=== PATIENT | female | born 1955 | race African-American/Black ===

== ENCOUNTER 2020-09-19 22:05 | Inpatient (IN) | payer MEDICARE, MEDICAID ==
[~2020-09-19] VITALS: Ht 170.2 cm; Wt 101.2 kg
[~2020-09-19 22:05] MED LIST: AMLO10TA80 PO; CARV25TA47 PO; CLON0.2T PO; CYAN250010 PO; IRON1CAP21 PO; LEVO50TA8 PO; LOSA50TA41 PO; OMEP20TA2 PO; PROT40 MT; TIZA4CAP PO; TRAM50TA94 MT
[2020-09-19] MEDS ORDERED: CLONIDINE 0.2MG TABLET PO ONE (22:30)
[2020-09-19 23:09] LABS: BASOPHILS % 0.6 % (0.0-2.0); EOSINOPHILS % 0.2 % (0.0-5.0); HEMOGLOBIN. 9.3 g/dL (12.0-16.0); MEAN CORPUSCULAR HEMOGLOBIN 21.6 pg (28.0-32.0); MEAN CORPUSCULAR VOLUME 67.4 fL (81.0-99.0); MEAN PLATELET VOLUME 8.7 fl (7.4-10.4); MONOCYTES % 5.5 % (2.0-8.0); NEUTROPHILS % 80.7 % (40.0-76.0); PLATELET 214 x1000/uL (130-400); RED CELL DISTRIBUTION WIDTH 22.3 % (11.6-14.6)
[2020-09-19 23:14] LABS: CHLORIDE 107 mEq/L (98-107)
[2020-09-19 23:19] LABS: ETHANOL BLOOD < 10 mg/dL; INR 1.1; PARTIAL THROMBOPLASTIN TIME 29.4 sec (23.4-31.0); PROTHROMBIN TIME 11.4 sec (9.6-11.0)
[2020-09-19 23:25] LABS: PLATELET ESTIMATE NORMAL
[2020-09-20 00:20] LABS: CLARITY URINE CLEAR (CLEAR); COLOR URINE YELLOW (YELLOW); KETONES URINE NEGATIVE (NEGATIVE); LEUKOCYTE ESTERASE URINE NEGATIVE (NEGATIVE); NITRITE URINE NEGATIVE (NEGATIVE); OCCULT BLOOD URINE TRACE (NEGATIVE); PH URINE 7.5 (4.5-8.0); PROTEIN URINE 1+ (NEGATIVE); SPECIFIC GRAVITY URINE 1.009 (1.005-1.030); UROBILINOGEN URINE 0.2 E.U./dL (0.2-1.0)
[2020-09-20] MEDS ORDERED: AZITHROMYCIN 500 MG in DEXT 5% WATER 250 ML IV ONE (00:30)
[2020-09-20] MEDS ORDERED: CEFTRIAXONE 1 G PREMIX 50 ML IV ONE (00:30)
[2020-09-20] MEDS ORDERED: ACETAMINOPHEN 650MG SUPP PR ONE (00:30)
[2020-09-20 00:35] LABS: *AMPHETAMINES SCREEN URINE NEGATIVE (NEGATIVE)
[2020-09-20 00:37] LABS: *BARBITURATES SCREEN URINE NEGATIVE (NEGATIVE); *BENZODIAZEPINES SCREEN URINE NEGATIVE (NEGATIVE); *COCAINE SCREEN URINE NEGATIVE (NEGATIVE); CANNABINOID URINE SCREEN NEGATIVE (NEGATIVE); METHADONE URINE SCREEN NEGATIVE (NEGATIVE); OPIATES URINE SCREEN NEGATIVE (NEGATIVE); PHENCYCLIDINE URINE SCREEN NEGATIVE (NEGATIVE)
[2020-09-20] MEDS ORDERED: ASPIRIN 300MG SUPP PR ONE (00:45)
[2020-09-20] MEDS ORDERED: ACETAMINOPHEN 325MG TABLET PO ONE (01:15)
[2020-09-20] MEDS ORDERED: ASPIRIN 325MG EC TABLET PO ONE (01:15)
[2020-09-20 09:15] VITALS: BP 160/94
[2020-09-20] MEDS ORDERED: ACETAMINOPHEN 325MG TABLET PO PRN (11:45)
[2020-09-20] MEDS ORDERED: DOCUSATE SODIUM 100MG CAPSULE PO PRN (11:45)
[2020-09-20] MEDS ORDERED: MAGNESIUM/ALUMINUM HYDROXIDE/SIMETHICONE 30ML UDC PO PRN (11:45)
[2020-09-20] MEDS ORDERED: IPRATROPIUM/ALBUTEROL 0.5-3(2.5)MG/3ML NEB HHN PRN (11:45)
[2020-09-20 12:00] VITALS: BP 145/86
[2020-09-20] MEDS ORDERED: SUMATRIPTAN SUCCINATE 25MG TABLET PO PRN (15:45)
[2020-09-20 16:00] VITALS: BP 150/90
[2020-09-20] MEDS: ONDANSETRON HCL 4MG/2ML INJ IV PRN (18:29)
[2020-09-20 20:00] VITALS: BP 170/111
[2020-09-20] MEDS: VANCOMYCIN 1500MG in DEXTROSE 5% WATER 250ML IV NR ×2 (20:00→20:06)
[2020-09-20] MEDS ORDERED: POTASSIUM CHLORIDE 20MEQ TABLET SR PO NR (20:00)
[2020-09-20] MEDS: LEVOTHYROXINE SODIUM 50MCG TABLET PO SCH (20:06)
[2020-09-20] MEDS: PANTOPRAZOLE 40MG DR TABLET PO SCH (20:06)
[2020-09-20] MEDS: CEFTRIAXONE 2 G in DEXTROSE 5% WATER 50 ML IV SCH (20:06)
[2020-09-20] MEDS: HYDROCODONE/ACETAMINOPHEN 5/325MG TABLET PO PRN (20:10)
[2020-09-20] MEDS: AMPICILLIN SOD/SULBACTAM NA 3 G in SODIUM CHLORIDE 0.9% 100 ML IV SCH (21:00)
[2020-09-20] MEDS: ACYCLOVIR INJ 750 MG in DEXT 5% WATER 125 ML IV SCH (21:00)
[2020-09-20] MEDS: CLONIDINE 0.1MG TABLET PO PRN (21:16)
[2020-09-20 22:22] VITALS: BP 146/93
[2020-09-20] MEDS: ACETAMINOPHEN 325MG TABLET PO PRN (23:08)
[2020-09-21] VITALS (7 sets, daily range): BP systolic 128–159; BP diastolic 70–109
[2020-09-21] MEDS: AMPICILLIN SOD/SULBACTAM NA 3 G in SODIUM CHLORIDE 0.9% 100 ML IV SCH ×4 (03:00→21:16)
[2020-09-21] MEDS: HYDROCODONE/ACETAMINOPHEN 5/325MG TABLET PO PRN ×2 (04:04→10:17)
[2020-09-21] MEDS: ACYCLOVIR INJ 750 MG in DEXT 5% WATER 125 ML IV SCH (05:00)
[2020-09-21] MEDS: LEVOTHYROXINE SODIUM 50MCG TABLET PO SCH (06:42)
[2020-09-21 07:41] LABS: HEMATOCRIT. 27.7 % (36.0-48.0); HEMOGLOBIN. 8.8 g/dL (12.0-16.0); MEAN CORPUSCULAR HEMOGLOBIN 21.7 pg (28.0-32.0); MEAN CORPUSCULAR VOLUME 68.5 fL (81.0-99.0); MEAN PLATELET VOLUME 9.5 fl (7.4-10.4); PLATELET 221 x1000/uL (130-400); RED BLOOD CELL COUNT 4.04 mill/uL (4.2-5.4); RED CELL DISTRIBUTION WIDTH 23.1 % (11.6-14.6)
[2020-09-21] MEDS: CEFTRIAXONE 2 G in DEXTROSE 5% WATER 50 ML IV SCH ×2 (08:00→19:48)
[2020-09-21] MEDS ORDERED: VANCOMYCIN 500 MG PREMIX 100 ML IV SCH (08:00)
[2020-09-21 08:19] LABS: CHLORIDE 107 mEq/L (98-107)
[2020-09-21 08:29] LABS: TOTAL IRON BINDING CAPACITY 305 ug/dL (250-450)
[2020-09-21 08:34] LABS: FOLIC ACID (FOLATE) SERUM >20 ng/mL ng/mL (>5.38)
[2020-09-21 08:40] LABS: FERRITIN 34 ng/mL (10-291)
[2020-09-21 08:46] LABS: VITAMIN B12 SERUM 254 pg/mL (211-911)
[2020-09-21] MEDS: PANTOPRAZOLE 40MG DR TABLET PO SCH (10:16)
[2020-09-21] MEDS ORDERED: IRON SUCROSE COMPLEX 100 MG/5 ML ML IV SCH (11:30)
[2020-09-21] MEDS: VANCOMYCIN 750 MG PREMIX 150 ML IV SCH ×2 (11:36→22:01)
[2020-09-21] MEDS ORDERED: NALOXONE HCL 0.4 MG/ML 1ML VIAL IV PRN (12:30)
[2020-09-21 12:53] LABS: PLATELET ESTIMATE NORMAL
[2020-09-21] MEDS: CYANOCOBALAMIN 1000MCG/ML VIAL IM SCH (14:07)
[2020-09-21] MEDS: AMLODIPINE 5MG TABLET PO SCH (14:08)
[2020-09-21] MEDS: OXYCODONE HCL/ACETAMINOPHEN 5/325MG TABLET PO PRN ×2 (14:09→21:39)
[2020-09-21] MEDS: ONDANSETRON HCL 4MG/2ML INJ IV PRN (16:20)
[2020-09-21] MEDS: BACLOFEN 10MG TABLET PO SCH ×2 (16:21→22:06)
[2020-09-22] VITALS: BP 128/70
[2020-09-22] MEDS: ACETAMINOPHEN 325MG TABLET PO PRN ×2 (00:27→23:45)
[2020-09-22] MEDS: AMPICILLIN SOD/SULBACTAM NA 3 G in SODIUM CHLORIDE 0.9% 100 ML IV SCH ×4 (02:47→20:13)
[2020-09-22] MEDS: CLONIDINE 0.1MG TABLET PO PRN (02:57)
[2020-09-22 04:00] VITALS: BP 147/96
[2020-09-22] MEDS: LEVOTHYROXINE SODIUM 50MCG TABLET PO SCH (06:09)
[2020-09-22] MEDS: BACLOFEN 10MG TABLET PO SCH ×3 (06:09→20:13)
[2020-09-22] MEDS: OXYCODONE HCL/ACETAMINOPHEN 5/325MG TABLET PO PRN ×3 (06:14→20:12)
[2020-09-22 07:02] LABS: BASOPHILS % 0.9 % (0.0-2.0); EOSINOPHILS % 7.1 % (0.0-5.0); HEMATOCRIT. 28.4 % (36.0-48.0); HEMOGLOBIN. 9.1 g/dL (12.0-16.0); LYMPHOCYTES % 39.3 % (20.0-50.0); MEAN PLATELET VOLUME 8.9 fl (7.4-10.4); MONOCYTES % 10.4 % (2.0-8.0); NEUTROPHILS % 42.3 % (40.0-76.0); PLATELET 215 x1000/uL (130-400); RED BLOOD CELL COUNT 4.11 mill/uL (4.2-5.4); RED CELL DISTRIBUTION WIDTH 22.5 % (11.6-14.6)
[2020-09-22 07:35] LABS: CHLORIDE 106 mEq/L (98-107)
[2020-09-22 08:00] VITALS: BP 150/100
[2020-09-22] MEDS: CEFTRIAXONE 2 G in DEXTROSE 5% WATER 50 ML IV SCH ×2 (08:52→20:13)
[2020-09-22] MEDS: PANTOPRAZOLE 40MG DR TABLET PO SCH (09:40)
[2020-09-22] MEDS: AMLODIPINE 5MG TABLET PO SCH (09:40)
[2020-09-22] MEDS ORDERED: IRON SUCROSE COMPLEX 100 MG/5 ML ML IV SCH (12:00)
[2020-09-22] MEDS: VANCOMYCIN 1 G PREMIX 200 ML IV SCH ×2 (12:46→23:10)
[2020-09-22] MEDS ORDERED: AMLODIPINE 5MG TABLET PO NR (13:30)
[2020-09-22] MEDS ORDERED: POTASSIUM CHLORIDE 20MEQ TABLET SR PO NR ×2 (13:30→15:00)
[2020-09-22] MEDS: CYANOCOBALAMIN 1000MCG/ML VIAL IM SCH (13:48)
[2020-09-22 16:00] VITALS: BP_SYST 149
[2020-09-22] MEDS: FUROSEMIDE 20MG TABLET PO SCH (16:14)
[2020-09-22 20:00] VITALS: BP 150/97
[2020-09-22] MEDS: METOPROLOL TARTRATE 25MG TABLET PO SCH (20:13)
[2020-09-22] MEDS ORDERED: AMOX1TAB16 MT (20:18)
[2020-09-22] MEDS: ONDANSETRON HCL 4MG/2ML INJ IV PRN (23:21)
[2020-09-23] VITALS: BP 125/96
[2020-09-23] MEDS: AMPICILLIN SOD/SULBACTAM NA 3 G in SODIUM CHLORIDE 0.9% 100 ML IV SCH ×2 (03:06→10:07)
[2020-09-23] MEDS: OXYCODONE HCL/ACETAMINOPHEN 5/325MG TABLET PO PRN ×2 (03:07→10:59)
[2020-09-23 04:00] VITALS: BP 162/90
[2020-09-23] MEDS: BACLOFEN 10MG TABLET PO SCH (05:42)
[2020-09-23] MEDS: LEVOTHYROXINE SODIUM 50MCG TABLET PO SCH (05:43)
[2020-09-23 07:20] LABS: BASOPHILS % 0.5 % (0.0-2.0); EOSINOPHILS % 6.1 % (0.0-5.0); HEMATOCRIT. 30.4 % (36.0-48.0); HEMOGLOBIN. 9.4 g/dL (12.0-16.0); MEAN CORPUSCULAR HEMOGLOBIN 21.2 pg (28.0-32.0); MEAN CORPUSCULAR VOLUME 68.8 fL (81.0-99.0); MEAN PLATELET VOLUME 9.2 fl (7.4-10.4); MONOCYTES % 9.9 % (2.0-8.0); NEUTROPHILS % 38.5 % (40.0-76.0); PLATELET 270 x1000/uL (130-400); RED BLOOD CELL COUNT 4.43 mill/uL (4.2-5.4); RED CELL DISTRIBUTION WIDTH 23.2 % (11.6-14.6)
[2020-09-23 07:32] LABS: CHLORIDE 108 mEq/L (98-107)
[2020-09-23 08:00] VITALS: BP 147/98
[2020-09-23] MEDS ORDERED: AMLODIPINE 10MG TABLET PO SCH (09:00)
[2020-09-23] MEDS ORDERED: AMLODIPINE 5MG TABLET PO SCH (09:00)
[2020-09-23] MEDS ORDERED: POTASSIUM CHLORIDE 10MEQ TABLET SR PO SCH (09:00)
[2020-09-23] MEDS: CEFTRIAXONE 2 G in DEXTROSE 5% WATER 50 ML IV SCH (10:06)
[2020-09-23] MEDS: METOPROLOL TARTRATE 25MG TABLET PO SCH (10:12)
[2020-09-23] MEDS: FUROSEMIDE 20MG TABLET PO SCH (10:12)
[2020-09-23] MEDS: PANTOPRAZOLE 40MG DR TABLET PO SCH (10:13)
[2020-09-23 12:00] VITALS: BP 149/88
[2020-09-23] MEDS: VANCOMYCIN 1 G PREMIX 200 ML IV SCH (12:01)
[2020-09-23] MEDS ORDERED: AMLO5TAB88 PO (12:02)
[2020-09-23] MEDS ORDERED: BACL-141 PO (12:02)
[2020-09-23] MEDS ORDERED: IRON SUCROSE COMPLEX 100 MG/5 ML ML IV SCH (13:00)
[2020-09-23 14:08] VITALS: BP 149/88
[2020-09-23] MEDS ORDERED: METOPROLOL TARTRATE 50MG TABLET PO SCH (21:00)
[2020-09-24] MEDS ORDERED: POTASSIUM CHLORIDE 20MEQ TABLET SR PO SCH (09:00)
== END 2020-09-23 14:35 | disposition home or self-care (01) | DRG 871 ==
LOC: ER 22:05 → 7WST 09-20 01:41 → EDBEDREQ 09-20 01:45 → EDBEDREQTM 09-20 01:46 → ENRESERV 09-20 07:40 → 8WST 09-21 01:47
PROVIDERS: ADMIT Internal Medicine; ATTEND Internal Medicine
DX: A41.9 Sepsis, unspecified organism (principal); G03.9 Meningitis, unspecified; G93.40 Encephalopathy, unspecified; I69.354 Hemiplegia and hemiparesis following cerebral infarction affecting left non-dominant side; G43.109 Migraine with aura, not intractable, without status migrainosus; D50.9 Iron deficiency anemia, unspecified; E03.9 Hypothyroidism, unspecified; E11.9 Type 2 diabetes mellitus without complications; E78.00 Pure hypercholesterolemia, unspecified; Z20.822 Contact with and (suspected) exposure to COVID-19; E87.6 Hypokalemia; I10 Essential (primary) hypertension; K08.89 Other specified disorders of teeth and supporting structures; K21.9 Gastro-esophageal reflux disease without esophagitis; M54.40 Lumbago with sciatica, unspecified side; M54.2 Cervicalgia; Z79.84 Long term (current) use of oral hypoglycemic drugs; E78.5 Hyperlipidemia, unspecified; I69.30 Unspecified sequelae of cerebral infarction; Z79.899 Other long term (current) drug therapy; Z90.49 Acquired absence of other specified parts of digestive tract; K02.9 Dental caries, unspecified; R80.9 Proteinuria, unspecified
CPT/HCPCS: 36415; 70544; 70553; 71045; 80048; 80053; 80061; 80202; 80305; 80320; 81003; 82607; 82728; 82746; 82962; 83036; 83540; 83550; 83605; 83880; 84145; 84443; 84484; 85025; 92610; 93005; 93306; 93880; 97162; 97166; 99285; C1893; J0133; J0295; J0456; J0696; J2405; J3370; J3420; J7040; J7050; J7060; U0003; G0480

== ENCOUNTER 2021-02-22 12:22 | Inpatient (IN) | payer MEDICARE, MEDICAID ==
[~2021-02-22] VITALS: Ht 165.1 cm; Wt 69.9 kg
[~2021-02-22 12:22] MED LIST changes: -AMLO10TA80 PO; +AMLO5TAB88 PO; +AMOX1TAB16 MT; +BACL-141 PO; -OMEP20TA2 PO; -TIZA4CAP PO
[2021-02-22] MEDS ORDERED: LABETALOL 5MG/ML SYR 20 MG/4 ML SYRINGE IV ONE (12:45)
[2021-02-22 13:40] LABS: BASOPHILS % 0.3 % (0.0-2.0); EOSINOPHILS % 1.7 % (0.0-5.0); HEMATOCRIT. 40.6 % (36.0-48.0); HEMOGLOBIN. 13.1 g/dL (12.0-16.0); LYMPHOCYTES % 20.1 % (20.0-50.0); MEAN CORPUSCULAR HEMOGLOBIN 25.5 pg (28.0-32.0); MEAN CORPUSCULAR VOLUME 79.4 fL (81.0-99.0); MEAN PLATELET VOLUME 8.7 fl (7.4-10.4); MONOCYTES % 6.1 % (2.0-8.0); NEUTROPHILS % 71.8 % (40.0-76.0); PLATELET 267 x1000/uL (130-400); RED BLOOD CELL COUNT 5.12 mill/uL (4.2-5.4); RED CELL DISTRIBUTION WIDTH 15.5 % (11.6-14.6)
[2021-02-22 13:45] LABS: CHLORIDE 107 mEq/L (98-107)
[2021-02-22 13:48] LABS: ETHANOL BLOOD < 10 mg/dL; INR 1.1; PROTHROMBIN TIME 11.7 sec (9.6-11.0)
[2021-02-22 13:52] LABS: LDL CHOLESTEROL 52 mg/dL (5-100)
[2021-02-22] MEDS ORDERED: IOHEXOL-350 100 ML BOTTLE ONE (14:01)
[2021-02-22 15:36] LABS: CLARITY URINE CLEAR (CLEAR); COLOR URINE YELLOW (YELLOW); KETONES URINE 2+ (NEGATIVE); LEUKOCYTE ESTERASE URINE NEGATIVE (NEGATIVE); NITRITE URINE NEGATIVE (NEGATIVE); OCCULT BLOOD URINE NEGATIVE (NEGATIVE); PH URINE 5.5 (4.5-8.0); PROTEIN URINE NEGATIVE (NEGATIVE); SPECIFIC GRAVITY URINE 1.075 (1.005-1.030)
[2021-02-22 15:48] LABS: *AMPHETAMINES SCREEN URINE NEGATIVE (NEGATIVE); *BARBITURATES SCREEN URINE NEGATIVE (NEGATIVE); *BENZODIAZEPINES SCREEN URINE NEGATIVE (NEGATIVE); *COCAINE SCREEN URINE NEGATIVE (NEGATIVE); METHADONE URINE SCREEN NEGATIVE (NEGATIVE); OPIATES URINE SCREEN NEGATIVE (NEGATIVE)
[2021-02-22 15:49] LABS: CANNABINOID URINE SCREEN NEGATIVE (NEGATIVE); PHENCYCLIDINE URINE SCREEN NEGATIVE (NEGATIVE)
[2021-02-22] MEDS ORDERED: LABETALOL 5MG/ML SYR 20 MG/4 ML SYRINGE IV PRN (19:45)
[2021-02-23 11:00] VITALS: BP 141/94
[2021-02-23] MEDS ORDERED: TRAMADOL 50MG TABLET PO PRN (11:45)
[2021-02-23 12:04] VITALS: BP 141/94
[2021-02-23] MEDS: ASPIRIN 81MG EC TABLET PO SCH (12:23)
[2021-02-23] MEDS: LEVOTHYROXINE SODIUM 50MCG TABLET PO SCH (12:23)
[2021-02-23] MEDS: ENOXAPARIN 40MG/0.4ML SYR SUBCUT SCH (12:23)
[2021-02-23] MEDS: ACETAMINOPHEN 325MG TABLET PO PRN ×2 (12:24→19:21)
[2021-02-23] MEDS: CARVEDILOL 12.5MG TABLET PO SCH ×2 (12:24→21:24)
[2021-02-23 12:53] LABS: HEMATOCRIT 40.3 % (36.0-48.0); HEMOGLOBIN 13.2 g/dL (12.0-16.0); MEAN CORPUSCULAR HEMOGLOBIN 25.9 pg (28.0-32.0); MEAN CORPUSCULAR VOLUME 79.4 fL (81.0-99.0); PLATELET 308 x1000/uL (130-400); RED BLOOD CELL COUNT 5.08 mill/uL (4.2-5.4); RED CELL DISTRIBUTION WIDTH 15.7 % (11.6-14.6)
[2021-02-23 13:01] LABS: CHLORIDE 110 mEq/L (98-107)
[2021-02-23 13:11] LABS: LDL CHOLESTEROL 55 mg/dL (5-100)
[2021-02-23 13:17] LABS: HDL CHOLESTEROL 48 mg/dL (40-59)
[2021-02-23 16:10] VITALS: BP 114/70
[2021-02-23 20:00] VITALS: BP 117/85
[2021-02-23] MEDS ORDERED: NALOXONE HCL 0.4MG/ML VIAL IV PRN (20:45)
[2021-02-23] MEDS ORDERED: CARVEDILOL 12.5MG TABLET PO SCH (21:00)
[2021-02-23] MEDS ORDERED: ATORVASTATIN CALCIUM 40MG TABLET PO SCH (21:00)
[2021-02-24] VITALS: BP 136/79
[2021-02-24 04:00] VITALS: BP 108/78
[2021-02-24] MEDS: LEVOTHYROXINE SODIUM 50MCG TABLET PO SCH (06:27)
[2021-02-24 07:12] LABS: HEMATOCRIT 42.2 % (36.0-48.0); HEMOGLOBIN 13.5 g/dL (12.0-16.0); MEAN CORPUSCULAR HEMOGLOBIN 25.6 pg (28.0-32.0); MEAN CORPUSCULAR VOLUME 79.9 fL (81.0-99.0); PLATELET 240 x1000/uL (130-400); RED BLOOD CELL COUNT 5.28 mill/uL (4.2-5.4)
[2021-02-24 07:52] LABS: VITAMIN B12 SERUM 431 pg/mL (211-911)
[2021-02-24 08:00] VITALS: BP 100/71
[2021-02-24] MEDS: CARVEDILOL 12.5MG TABLET PO SCH (08:34)
[2021-02-24] MEDS: ENOXAPARIN 40MG/0.4ML SYR SUBCUT SCH (08:34)
[2021-02-24] MEDS: ASPIRIN 81MG EC TABLET PO SCH (08:34)
[2021-02-24] MEDS: ACETAMINOPHEN 325MG TABLET PO PRN ×2 (09:40→13:54)
[2021-02-24 12:00] VITALS: BP 127/73
[2021-02-24] MEDS ORDERED: LIP40 PO (15:43)
[2021-02-24 16:00] VITALS: BP 106/80
[2021-02-24 16:02] VITALS: BP 127/73
== END 2021-02-24 17:39 | disposition home or self-care (01) | DRG 79 ==
LOC: ER 12:22 → 6WST 17:04 → EDBEDREQSVC 17:12 → EDBEDREQ 17:12 → ENRESERV 02-23 08:46
PROVIDERS: ADMIT Family Medicine Adult Medicine; ATTEND Family Medicine Adult Medicine
PROC: 4A10X4Z Monitoring of Central Nervous Electrical Activity, External Approach (ICD-10-PCS; principal; 2021-02-24)
DX: I67.4 Hypertensive encephalopathy (principal); D50.9 Iron deficiency anemia, unspecified; E03.9 Hypothyroidism, unspecified; E78.00 Pure hypercholesterolemia, unspecified; G89.29 Other chronic pain; E87.6 Hypokalemia; E11.9 Type 2 diabetes mellitus without complications; K21.9 Gastro-esophageal reflux disease without esophagitis; Z79.899 Other long term (current) drug therapy; Z90.49 Acquired absence of other specified parts of digestive tract; Z93.3 Colostomy status; I69.30 Unspecified sequelae of cerebral infarction; M54.12 Radiculopathy, cervical region; Z86.69 Personal history of other diseases of the nervous system and sense organs; I11.0 Hypertensive heart disease with heart failure; I50.9 Heart failure, unspecified
CPT/HCPCS: 36415; 70496; 70551; 71045; 74176; 80048; 80053; 80061; 80305; 80320; 81003; 82140; 82607; 83721; 84443; 84484; 85025; 85027; 93005; 93306; 95816; 97162; 99291; J1650; J3490; Q9967; G0480